=== PATIENT | male | born 1960 | race Caucasian/White ===

== ENCOUNTER 2023-09-13 09:40 | Day surgery (SDC) | payer BC ==
[~2023-09-13] VITALS: Ht 182.9 cm; Wt 101.2 kg
[~2023-09-13 09:40] MED LIST: ATEN25TA PO; ECOT81TA5 PO; ICOS1CAP PO; OMEP-173 PO; PHENYLEPHRINE 10% OPHTH SOL 5ML OD PRN
[2023-09-13] MEDS: ATROPINE SULFATE 1% OPHTH SOLN 2ML BTL OD SCH (10:30)
[2023-09-13] MEDS: LIDOCAINE 3.5 % 1ML OPHTH TOPICAL GEL OU ONE (10:30)
[2023-09-13] MEDS: OFLOXACIN 0.3 % (OCUFLOX) OPTH SOL 5ML OD ONE (10:30)
[2023-09-13] MEDS: TROPICAMIDE 1% OPHTH SOLN 15ML OD SCH (10:30)
[2023-09-13] MEDS: PHENYLEPHRINE 2.5% OPHTH SOL 2ML OD SCH (10:30)
[2023-09-13] MEDS ORDERED: MIDAZOLAM INJ 2MG/2ML VIAL As Ordered ONE (11:43)
[2023-09-13] MEDS ORDERED: fentaNYL 100 MCG/2 ML INJECTION As Ordered ONE (11:43)
[2023-09-13] MEDS: LIDOCAINE 1% SDV 5ML VIAL As Ordered ONE (11:53)
[2023-09-13] MEDS: BSS IRRIG/VANCO(10MG)/TOBRA(5MG)/EPINEPH(1:1000-0.5CC)500ML BAG-ORONLY As Ordered ONE (11:53)
[2023-09-13] MEDS: CEFUROXIME 1MG/0.1ML INTRACAMERAL INJ As Ordered ONE (11:53)
[2023-09-13 12:21] VITALS: BP 121/72; TEMP 98; O2SAT 95
== END 2023-09-13 12:50 | disposition home or self-care (01) ==
LOC: M SDC 09:40
PROVIDERS: ATTEND Ophthalmology
DX: H25.11 Age-related nuclear cataract, right eye (principal); I10 Essential (primary) hypertension; Z87.891 Personal history of nicotine dependence; K21.9 Gastro-esophageal reflux disease without esophagitis; Z79.899 Other long term (current) drug therapy; Z88.0 Allergy status to penicillin
CPT/HCPCS: 66984; J0697; J2250; J3010; V2632

== ENCOUNTER 2023-10-25 08:56 | Day surgery (SDC) | payer BC ==
[~2023-10-25] VITALS: Ht 182.9 cm; Wt 104.3 kg
[~2023-10-25 08:56] MED LIST changes: -PHENYLEPHRINE 10% OPHTH SOL 5ML OD PRN; +PHENYLEPHRINE 10% OPHTH SOL 5ML OS PRN
[2023-10-25] MEDS: LIDOCAINE 3.5 % 1ML OPHTH TOPICAL GEL OU ONE (09:54)
[2023-10-25] MEDS: ATROPINE SULFATE 1% OPHTH SOLN 2ML BTL OS SCH (09:54)
[2023-10-25] MEDS: OFLOXACIN 0.3 % (OCUFLOX) OPTH SOL 5ML OS ONE (09:54)
[2023-10-25] MEDS: PHENYLEPHRINE 2.5% OPHTH SOL 2ML OS SCH (09:54)
[2023-10-25] MEDS: TROPICAMIDE 1% OPHTH SOLN 15ML OS SCH (09:55)
[2023-10-25] MEDS ORDERED: MIDAZOLAM INJ 2MG/2ML VIAL As Ordered ONE (10:31)
[2023-10-25] MEDS ORDERED: fentaNYL 100 MCG/2 ML INJECTION As Ordered ONE (10:31)
[2023-10-25] MEDS: BSS IRRIG/VANCO(10MG)/TOBRA(5MG)/EPINEPH(1:1000-0.5CC)500ML BAG-ORONLY As Ordered ONE (11:02)
[2023-10-25] MEDS: LIDOCAINE 1% SDV 5ML VIAL As Ordered ONE (11:02)
[2023-10-25] MEDS: CEFUROXIME 1MG/0.1ML INTRACAMERAL INJ As Ordered ONE (11:06)
[2023-10-25 11:14] VITALS: BP 137/92; TEMP 97.8; O2SAT 96
== END 2023-10-25 11:33 | disposition home or self-care (01) ==
LOC: M SDC 08:56
PROVIDERS: ATTEND Ophthalmology
DX: H25.12 Age-related nuclear cataract, left eye (principal); I10 Essential (primary) hypertension; E78.5 Hyperlipidemia, unspecified; K21.9 Gastro-esophageal reflux disease without esophagitis; Z79.899 Other long term (current) drug therapy; Z79.82 Long term (current) use of aspirin; Z88.0 Allergy status to penicillin; Z90.49 Acquired absence of other specified parts of digestive tract; Z87.891 Personal history of nicotine dependence
CPT/HCPCS: 66984; J0697; J2250; J3010; V2632